=== PATIENT | female | born 1960 | race Caucasian/White ===

== ENCOUNTER → 2017-03-01 | Emergency (ER) | payer OTHER ==
--- NOTE | 2017-03-02 00:42 | PDOC ---
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 She states that she tripped on the wire of a monitor and fell against a wall, striking the right side of her body, then she fell down onto the floor. She complains of pain to the right hand, primarily over the distal aspect of the right middle finger. She also complains of discomfort to the right shoulder and the right knee. Patient has been ambulatory since the incident. Have you received a tetanus shot in the past 10 years?: Yes Body Location Affected: REPORTS: Upper Extremity (R), Lower Extremity (R) Timing: REPORTS: Abrupt Duration: 1 hour Severity: Moderate Context of Fall: REPORTS: Tripped Location of Fall: REPORTS: Work Fell From Height (in feet): 0 Quality: REPORTS: "Pain" Associated Symptoms: REPORTS: Recalls Injury, Recalls Coming to ER. DENIES: Dazed, Seizure, Trouble Breathing, Memory Impairment, Blow to Head, Lost Consciousness, Other Location of Injuries / Pain: REPORTS: Right, Shoulder, Hand, Knee Any Prior Injuries Related to Current Complaint?: No - Patient Home Medications Home Medications: Home Medications Naproxen Sodium [Aleve] 220 mg PO Q8HR PRN 01/10/12 Fluticasone Propionate [Flonase Allergy Relief] 2 spr JOSÉ MIGUEL BID #1 spr 02/20/16 Calcium Carbonate [Tums] 1 tab PO PRN PRN 04/23/16 Aspirin 81 mg PO DAILY tab 09/23/16 Atorvastatin Calcium [Lipitor] 1 tab PO DAILY tab 09/23/16 Cefdinir 300 mg PO Q12H #20 cap 09/23/16 Esomeprazole Magnesium [Nexium 24hr] 40 mg PO PRN PRN #30 tab 09/23/16 Fluticasone Propionate [Flonase Allergy Relief] 2 spr JOSÉ MIGUEL BID #1 spr 09/23/16 Lisinopril 1 tab PO DAILY tab 09/23/16 - Patient Allergies Allergies/Adverse Reactions: Allergies Allergy/AdvReac Type Severity Reaction Status Date / Time Penicillins Allergy Intermediate RASH Verified 03/01/17 22:34 sulfamethoxazole Allergy Intermediate RASH Verified 03/01/17 22:34 [From Bactrim] trimethoprim [From Bactrim] Allergy Intermediate RASH Verified 03/01/17 22:34 cephalexin monohydrate Allergy Rash Verified 03/01/17 22:34 [From Keflex] pseudoephedrine HCl Allergy Hypertensio Verified 03/01/17 22:34 [From Sudafed] n epinephrine AdvReac Intermediate NOT Verified 03/01/17 22:34 APPLICABLE clindamycin AdvReac Mild NOT Verified 03/01/17 22:34 APPLICABLE Past Medical History - heen HEENT History: Dentures/Partials Additional HEENT History: POOR DENTITION; IN PROCESS OF GETTING TEETH REMOVED FOR DENTURES Cardiovascular History: Denies History Respiratory History: Denies History Gastrointestinal History: GERD Genitourinary History: Denies History Endocrine History: Denies History Musculoskeletal History: Denies History Neurological History: Denies History Blood Disorders: Denies History Psychiatric History: Denies History History of Sexually Transmitted Diseases: No Cancer History: Denies History History of MDRO: No History of Other Communicable Diseases: No Alcohol Use: Rarely Substance Use Type: None Previous Surgical History: Yes Type / Date of Surgery: VAGINAL HYST. TONSILECTOMY Significant Family History: No pertinent family hx Past Medical History Reviewed: Reviewed - No Changes ROS - Limitations ROS Limitations: No Limitations Constitution: REPORTS: Denies Symptoms Cardiovascular: REPORTS: Denies Cardiac Symptoms Respiratory: REPORTS: Denies Resp Symptoms Neurological: REPORTS: Denies Neuro Symptoms Gastrointestinal: REPORTS: Denies GI Symptoms Endocrine: REPORTS: Denies Symptoms Musculoskeletal: REPORTS: Joint Pain (Right knee and shoulder), Recent Injury ( As above) Genitourinary: REPORTS: Denies Symptoms Eyes: REPORTS: Denies Symptoms ENT: REPORTS: Denies Symptoms Skin: REPORTS: Denies Skin Symptoms Lympathic: REPORTS: Denies Lympathic Symptoms Immunologic: POSITIVE: Denies Symptoms Psychiatric: POSITIVE: Denies Psych Symptoms Fall Physical Exam - General Appearance General Appearance: POSITIVE: Alert, Cooperative, No Acute Distress. 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 Range of motion of the shoulder is intact. No deformities. No contusions or abrasions. No sensory motor or vascular deficits. Patient has a superficial abrasion just below the patella on the right. Range of motion of the knee is intact without an effusion. Negative anterior and posterior drawer test and abductor and abductor stress test. Examination right hand shows her to have mild discomfort on firm palpation over the distal portion of the right middle finger without any deformity; range of motion is intact. Joint Exam: POSITIVE: Normal ROM, Normal Gait, Normal Weight Bearing, Painful. NEGATIVE: Ligamentous Instability, Effusion, Click, Crepitus, Limited ROM, Antalgic Gait, Unable to Bear Weight (As above), Joint Effusion Images - Upper Extremities Upper Extremities: 1 - Some discomfort on palpation - Hands Hand: 1 - Mild discomfort on palpation - Lower Extremities Lower Extremities: 1 - Superficial abrasion and mild discomfort on palpation Fall Progress - Results Reviewed by me Xrays/CTs/US Reviewed by me: Yes Discussed with Radiologist: No Radiology Findings: X-ray right shoulder, right knee and right hand normal by my interpretation; radiologist interpretation pending - Patient's Progress Pain Medication Addressed: POSITIVE: Yes (Recommended Advil or Tylenol) School/Work Release Addressed: POSITIVE: Yes (May return to work) Re-Examine Time:: 22:30 Status: POSITIVE: Unchanged - Consult Counseled: POSITIVE: Patient, RE: Radiology Results, RE: DX, RE: Need for F/U Patient Care Time - Estimated PCT Patient Care Time (In Minutes): 35 Vital Signs - Recent Vital Signs Vital Signs: Blood pressure 143/88, heart rate 89, respiratory rate 16, oxygen saturation on room air 94%. - VS Reviewed Vital Signs Reviewed: Yes Discharge Clinical Impression: Multiple bruises Discharge Disposition: Discharged to Home Condition: Stable
--- NOTE | 2017-03-02 09:54 | DI ---
XR HAND MIN 3VW,03/01/2017 9:44 PM: Clinical History: Status post fall Previous Exam: None at this facility. Findings: 3 views of the right hand are obtained, and demonstrate anatomic alignment without fractures. Degener ative changes are noted involving the distal interphalangeal joints. There is what appears to be an old injury at the base of the thumb along the medial surface. Surrounding soft tissues are unremarkable. Impression: 1. Old injury to the base of the right thumb involving the carpometacarpal joint. 2. Degenerative changes of the distal interphalangeal joints.
--- NOTE | 2017-03-02 09:55 | DI ---
XR SHOULDER MIN 2VW,03/01/2017 9:44 PM: Clinical History: Status post fall Previous Exam: None at this facility. Findings: 3 views of the right shoulder are obtained, and demonstrate anatomic alignment without fractures. The adjacent right lung and chest wall are unremarkable. Impression: Normal right shoulder.
--- NOTE | 2017-03-02 09:57 | DI ---
XR KNEE 3 VW,03/01/2017 9:44 PM: Clinical History: Status post fall Previous Exam: None at this facility. Findings: 3 views of the right knee are obtained, and demonstrate anatomic alignment without fractures. There i s enthesopathy noted at the insertion of the patellar tendon. Is mild loss of joint space within the medial compartment. Impression: No acute findings.
== END ==
LOC: ER 21:11 → EDSTATUS 03-19 15:39
DX: S40.011A Contusion of right shoulder, initial encounter (principal); S80.211A Abrasion, right knee, initial encounter; M25.511 Pain in right shoulder; M25.561 Pain in right knee; W01.198A Fall on same level from slipping, tripping and stumbling with subsequent striking against other object, initial encounter; Y92.230 Patient room in hospital as the place of occurrence of the external cause; Y99.0 Civilian activity done for income or pay
CPT/HCPCS: 73030; 73130; 73562; 99283

== ENCOUNTER → 2017-03-05 | Outpatient (CLI) | payer BC | LOC: LAB 13:26 | PROVIDERS: ATTEND Family Medicine | DX: F32.9 Major depressive disorder, single episode, unspecified (principal) | CPT/HCPCS: 36415; 84443 ==